=== PATIENT | male | born 2000 | race Caucasian/White ===

== ENCOUNTER 2025-01-20 16:04 | Emergency (ER) | payer BC, SELFPAY ==
--- NOTE | ~2025-01-20 | XR_ITS ---
CLINICAL HISTORY: chest pain 1 view chest x-ray. Comparison: None Findings: The lungs are adequately expanded. No focal consolidation. No effusion or pneumothorax. Cardiac and mediastinal contours are within normal limits. No acute osseous abnormality Impression: No focal consolidation This document has been electronically signed by: Rios Gordon MD on 01/20/2025 17:28:28
[2025-01-20 16:11] VITALS: BP 150/89; PULSE 117; RESP 18; TEMP 36.4; O2SAT 99; BMI 24.2
--- NOTE | 2025-01-20 16:22 | ED_ITS ---
HPI - General Adult General Chief complaint: General Medical Stated complaint: SOB; clammy, extremities numb Time Seen by Provider: 01/20/25 18:19 Source: patient Limitations: no limitations History of Present Illness ED Provider: Amy Floyd PA-C HPI narrative: 24-year-old otherwise healthy male with the anxiety, presents with chest pain x4 days. Patient states he has had generalized chest tightness, that became worse today while exercising. Associated shortness of breath, dizziness, diaphoresis when patient had this episode. Patient denies new psychosocial stressors. Denies recent cough or cold symptoms. Denies unilateral calf pain or swelling. The patient's symptoms have since resolved. Related Data Allergies Allergy/AdvReac Type Severity Reaction Status Date / Time No Known Allergies Allergy Verified 01/20/25 16:13 Review of Systems 2 Review of Systems: Yes all other systems are reviewed and are negative Constitutional: Constitutional: Denies fatigue, Denies fever(s) and Denies headache(s) ENT: Reports dizziness and Denies headache(s) Cardiovascular: Cardiovascular: Reports chest pain and Reports dyspnea Respiratory: Respiratory: Denies cough and Reports dyspnea Gastrointestinal: Gastrointestinal: Denies abdominal pain, Denies nausea and Denies vomiting Musculoskeletal: Musculoskeletal: Denies back pain, Denies arthralgias and Denies joint swelling Neurologic: Reports dizziness and Denies headache(s) Endocrine: Endocrine: Denies fatigue PMFSH Past Medical History Attestation statement: The following information was validated with the patient. Social History Social History Smoked in Last 30 Days: No Use of substances other than those prescribed or required for medical reasons: Yes Substance Use Type: Marijuana Substance Use Frequency: Weekly Advance Directives: No Advance Directives Information Provided: Yes Do you have a plan to hurt others: No Plan Physical Exam ED Vital Signs: Vital Signs - 24 hr 01/20/25 16:11 01/20/25 18:00 01/20/25 19:33 Temperature 97.5 F 98.1 F 98.1 F Pulse Rate 117 H 86 86 Respiratory Rate 18 18 18 Blood Pressure 150/89 H 120/62 120/62 Pulse Oximetry 99 98 98 Oxygen Delivery Method Room Air Room Air Room Air BMI result Body Mass Index 24.2 Const Other: Alert Orientation/consciousness: patient oriented x3 Resp Effort & Inspection: normal respiratory effort Cardio Other: Normal peripheral perfusion Skin Other: Warm dry no rash Neuro General: patient oriented x3, gait normal, no focal motor deficits and CN's II- XI intact bilaterally Extrem Other: No unilateral calf pain or swelling Psych Other: Cooperative, appears anxious Course Course Course Narrative: RME: 24-year-old male presents to ED 3-4 days of chest pain dizziness feeling clammy. Patient states not eaten much today and having only coughing while working out and nearly syncopized but did not pass out. EKG labs ordered. Medical Decision Making Medical Decision Making MDM Narrative: 24-year-old otherwise healthy male with the anxiety, presents with chest pain x4 days. Patient states he has had generalized chest tightness, that became worse today while exercising. Associated shortness of breath, dizziness, diaphoresis when patient had this episode. Patient denies new psychosocial stressors. Denies recent cough or cold symptoms. Denies unilateral calf pain or swelling. The patient's symptoms have since resolved. Problem: Anxiety History: Per patient I have considered the following differential diagnoses: Panic attack, viral syndrome, pneumonia, musculoskeletal strain, costochondritis, ACS, PE Plan: Screening labs including EKG chest x-ray and cardiac enzymes were obtained from triage. The patient was objectively tachycardic, we will add on a dimer. To note he has no objective signs symptoms for DVT on exam. The patient has no risk factors for coronary artery disease, his heart score is 0. I do believe he was having a panic attack, he also explained that he had bilateral paresthesias of his hands at the time of his chest pain and shortness of breath while exercising. I have independently reviewed the following tests: Labs: No leukocytosis, not anemic, no electrolyte abnormality, trop negative, dimer negative, viral panel neg EKG: Sinus tachycardia, rate of 105, T-wave abnormality noted inferior lead, no prior to compare to, QTC 430 Chest x-ray:Impression: No focal consolidation This document has been electronically signed by: Rios Gordon MD on 01/20/2025 17:28:28 Lab Data 01/20/25 16:59 01/20/25 16:59 Labs: Lab Results 01/20/25 Range/Units 16:59 WBC 8.0 (4.8-10.8) X10*3/uL RBC 4.93 (4.60-5.80) X10*6/uL Hgb 15.1 (14.0-18.0) g/dl Hct 42.5 (42.0-52.0) % MCV 86.2 (80.0-98.0) fL MCH 30.6 (27.0-33.0) pg MCHC 35.5 (31.0-36.0) g/dl RDW 12.6 (11.0-16.0) % Plt Count 272 (160-400) X10*3/uL MPV 9.8 (9.4-12.4) fL Immature Gran % (Auto) 0.3 (0.0-0.4) % Neut % (Auto) 55.4 (45-73) % Lymph % (Auto) 32.0 (20-40) % [place] % (Auto) 10.5 (2-11) % Eos % (Auto) 1.3 (0-4) % Baso % (Auto) 0.5 (0-2) % Lymph # (Auto) 2.6 (1.2-4.9) X10*3/uL [place] # (Auto) 0.8 (0.1-1.2) X10*3/uL Eos # (Auto) 0.1 (0.0-0.4) X10*3/uL Baso # (Auto) 0.0 (0.0-0.2) X10*3/uL Abs Immat Gran (auto) 0.02 (0.00-0.03) X10*3/uL Absolute Neuts (auto) 4.4 (2.0-8.3) x10*3/uL Absolute Nucleated RBC 0.000 (0.0-0.012) X10*3/uL Nucleated RBC % (auto) 0.0 (0.0-0.2) /100WBC PT 12.1 (10.9-12.4) SEC INR 1.0 (0.9-1.1) APTT 29.3 (26.0-36.8) SEC D-Dimer High Sensitivty < 150 NG/ML Sodium 138 (135-145) mmol/L Potassium 3.4 (3.3-5.1) mmol/L Chloride 101 (96-108) mmol/L Carbon Dioxide 25 (22-29) mmol/L Anion Gap 15 (12-20) BUN 17 H (9-16) mg/dL Creatinine 1.00 (0.5-1.4) mg/dL Estim Creat Clear Calc 126.5 Estimated GFR > 60 Random Glucose 128 H (60-115) mg/dL Calcium 9.8 (8.4-10.2) mg/dL Total Bilirubin 0.5 (0.0-1.0) mg/dL AST 42 H (5-37) U/L ALT 37 (0-40) U/L Alkaline Phosphatase 75 (39-117) U/L Troponin I High Sens < 2.7 (<3.5-35.0) ng/L B-Natriuretic Peptide < 10 (<100) pg/mL Total Protein 7.6 (6.5-8.0) g/dL Albumin 4.5 (3.5-5.0) g/dL Influenza Type A (PCR) NEGATIVE (Negative) Influenza Type B (PCR) NEGATIVE (Negative) RSV RNA Qual (PCR) NEGATIVE (Negative) SARS-CoV-2 RNA (RT-PCR) NEGATIVE (Negative) Discharge Plan Discharge Clinical Impression: Chest pain, Breath shortness, Anxiety Patient Disposition: Home, Self-Care Additional Instructions: All of your screening labs including a cardiac enzymes and a lab value to rule out a clot in your lung were negative. There were no concerning changes on her EKG in the chest x-ray is clear. I do believe your symptoms were secondary to having a panic attack. Continue to follow up with your primary care provider as needed. Interventions: ED Discharge Assessment Last Done: 01/20/25 19:33 Discharge Date/Time: 01/20/25 19:33 Print Language: Slovak
--- NOTE | 2025-01-20 16:22 | ECG_ITS ---
Test Reason : CHEST PAIN Blood Pressure : */* mmHG Vent. Rate : 105 BPM Atrial Rate : 105 BPM P-R Int : 152 ms QRS Dur : 100 ms QT Int : 326 ms P-R-T Axes : 75 69 -5 degrees QTcB Int : 430 ms Sinus tachycardia Right atrial enlargement T wave abnormality, consider inferior ischemia Abnormal ECG No previous ECGs available Referred By: Eddie Crowe Electronically Signed By: Moose Ziegler
[2025-01-20 17:05] LABS: MANUAL DIFF FLAG NO
[2025-01-20 17:08] LABS: Basophils Percent Auto 0.5 % (0-2); Eosinophils Absolute Auto 0.1 X10*3/uL (0.0-0.4); Eosinophils Percent Auto 1.3 % (0-4); Hematocrit 42.5 % (42.0-52.0); Hemoglobin 15.1 g/dl (14.0-18.0); Imm Gran Abs Auto 0.02 X10*3/uL (0.00-0.03); Imm Gran Pct Auto 0.3 % (0.0-0.4); Lymphocytes Absolute Auto 2.6 X10*3/uL (1.2-4.9); Mean Corpuscular HGB Conc 35.5 g/dl (31.0-36.0); Mean Corpuscular Hemoglobin 30.6 pg (27.0-33.0); Mean Corpuscular Volume 86.2 fL (80.0-98.0); Mean Platelet Volume 9.8 fL (9.4-12.4); Monocytes Absolute Auto 0.8 X10*3/uL (0.1-1.2); Monocytes Percent Auto 10.5 % (2-11); Neutrophils Absolute Auto 4.4 x10*3/uL (2.0-8.3); Neutrophils Percent Auto 55.4 % (45-73); Platelet Count 272 X10*3/uL (160-400); Red Blood Count 4.93 X10*6/uL (4.60-5.80); Red Cell Distribution Width 12.6 % (11.0-16.0)
[2025-01-20 17:14] LABS: Prothrombin Time 12.1 SEC (10.9-12.4)
[2025-01-20 17:16] LABS: Partial Thromboplastin Time 29.3 SEC (26.0-36.8)
[2025-01-20 17:23] LABS: Alanine Aminotransferase 37 U/L (0-40); Albumin Level 4.5 g/dL (3.5-5.0); Alkaline Phosphatase 75 U/L (39-117); Anion Gap 15 (12-20); Aspartate Amino Transferase 42 U/L (5-37); Bilirubin Total 0.5 mg/dL (0.0-1.0); Blood Urea Nitrogen 17 mg/dL (9-16); Calcium 9.8 mg/dL (8.4-10.2); Carbon Dioxide 25 mmol/L (22-29); Chloride 101 mmol/L (96-108); Creatinine Clr Calc Pharmacy 126.5; Estimated Glomerular Filt Rate > 60; Glucose Random 128 mg/dL (60-115); Potassium 3.4 mmol/L (3.3-5.1); Sodium 138 mmol/L (135-145); Total Protein 7.6 g/dL (6.5-8.0)
[2025-01-20 17:29] LABS: B Type Natriuretic Peptide < 10 pg/mL (<100)
[2025-01-20 17:32] LABS: Troponin-I High Sensitivity < 2.7 ng/L (<3.5-35.0)
[2025-01-20 18:00] VITALS: BP 120/62; PULSE 86; RESP 18; TEMP 36.7; O2SAT 98
[2025-01-20 18:04] LABS: Influenza A PCR NEGATIVE (Negative); Influenza B PCR NEGATIVE (Negative); Resp Syncy Virus RNA Qual PCR NEGATIVE (Negative); SARS COV2 PCR INHOUSE NEGATIVE (Negative)
[2025-01-20 18:42] LABS: D Dimer High Sensitivity < 150 NG/ML
[2025-01-20 19:33] VITALS: BP 120/62; PULSE 86; RESP 18; TEMP 36.7; O2SAT 98
--- OUTSIDE RECORDS SUMMARY | 2025-01-20 19:47 | XMS_ITS | Encounter Summary ---
Author Organization [facility] Address [address] [place] [id number] Phone Care Team Providers Care Assistant Mechanic Name Role Phone Gilberto Marcial MD Primary Care Provider [phone] Encounter Details Date Type Department Care Team (Late st Contact Info) Description 07/02/2017 Conversion Encounter [facility] - [address], [address] [place] [address] Gilberto Marcial MD [address] [place] [address] Social History Tobacco Use Types Packs/Day Years Used Date Smoking Tobacco: Never Assessed Sex and Gender Information Value Date Recorded Sex Assigned at Not on file Legal Sex Male 10:37 PM EST Gender Identity Not on file Sexual Orientation Not on file documented as of this encounter Plan of Treatment Not on file documented as of this encounter Visit Diagnoses Not on filedocumented in this encounter Care Teams Assistant Mechanic Relationship Specialty Start Date End Date Gilberto Marcial MD [address] [place] [address] PCP - General 01/14/17 09/04/22 documented as of this encounter
--- OUTSIDE RECORDS SUMMARY | 2025-01-20 19:47 | XMS_ITS | Clinical Summary ---
Author Organization [facility] Address [address] [place] [phone] Phone Care Team Providers Care Cad Specialist Name Role Phone Unavailable Primary Care Provider Unavailabl e Allergies No known active allergies Medications docusate sodium 100 MG capsule Take 100 mg by mouth 2 times daily as needed. 04/06/2020 Active Magnesium Citrate 1.745 GM/30ML solution TAKE 1 FULL BOTTLE FOR 1 DOSE 0 04/07/2020 Active Polyethylene Glycol 3350 (PEG 3350) powder Take 17 g by mouth daily. 04/06/2020 Active Active Problems Problem Noted Date Diagnosed Date Acute suppurative otitis med ia of both ears without spontaneous rupture of tympanic membranes 10/17/2018 Assessment & Plan (10/26/2018 9:26 AM EST): Now BSOM 1+ AU. Will make well visit appt and f/u then. Assessment & Plan (10/17/2018 11:26 AM EST): Will treat epididymitis with 1 dose rocephin + 10 d of doxy which will not cover the AOM. Will recheck pt in 2-3d. Epididymitis, right 10/17/2018 Overview (10/21/2018): 10/21/2018 - UC from visit is growing > 100,000 colonies H flu. On doxycycline which is not preferred coverage for H flu. Pt to be called for an update and f/u appt. Assessment & Plan (10/26/2018 9:23 AM EST): Resolved Scrotal mass 03/17/2018 Overview (03/17/2018): Seen 12/2017 for right scrotal mass. US 02/2018: Reviewed US report w/JS> 4 mm calcification right posterior scrotal wall. Likely result of past trauma but per JS should be followed. Last PE was 2014. Called mom and discussed results. She will talk w/Felipe about scheduling a PE with JS in the next few months and he will recheck the mass at that time. Weight loss 02/02/2016 Assessment & Plan (10/26/2018 9:23 AM EST): No cause evident. Eating healthier diet. Will come in for PE Syncope 11/19/2015 Immunizations Immunization Administration Dates Next Due DTaP 02/22/2003, 0,03/27/1999, 999,1998 HPV, Quadrivalent 04/26/2014,12/24/2013,10/20/20 13 Hep B, ped/adol 07/03/1999,1998,1998 Hib (PRP-T) 12/04/1999, 9,01/16/1999, 998 IPV 02/22/2003, 9,01/16/1999, 998 MMR 04/16/2004,12/04/1999 Meningococcal Conj (Menactra) MCV4P 10/24/2015,0 04/09/2011 Tdap 04/09/2011 Varicella 08/16/2008,09/27/1999 Family History Relation Name Status Comments Cousin 1 Alive Cousin 2 Alive Father Alive Father: Enlarge d heart Father's Sister Alive Maternal Grandfather Alive Maternal Grandmother Alive Materna l Aunt: Hole in the heart Mother Alive Other 1 Alive Other 2 Alive Other 3 Alive Other 4 Alive Other 5 Alive Other 6 Alive Other 7 Alive Other 8 Alive Other 9 Alive Other 10 Alive Enlarged heart Other 11 Alive Hole in the hea rt Other 12 passed at the a ge of 40 from a heart attack Paternal Grandfather Pat Gr- GFather: passed at the age of 40 from a heart attack Paternal Grandmother Alive Social History Tobacco Use Types Packs/Day Years Used Date Smoking Tobacco: Never Assessed Sex and Gender Information Value Date Recorded Sex Assigned at Not on file Legal Sex Male 10:37 PM EST Gender Identity Not on file Sexual Orientation Not on file Last Filed Vital Signs Vital Sign Reading Time Taken Comments Blood Pressure 112/58 11/22/2015 12:00 AM EST Pulse 94 02/02/2016 12:00 AM EST Temperature 36.8 ??C (98.2 ??F) 04/18/2020 5:12 PM ED T Respiratory Rate - - Oxygen Saturation 99% 02/02/2016 12:00 AM EST Inhaled Oxygen Concentration - - Weight 82.2 kg (181 lb 3.2 oz) 04/18/2020 5:12 P M EDT Height 186.1 cm (6' 1.25 ) 11/22/2015 12:[address] Body Mass Index - - Plan of Treatment Health Maintenance Due Date Last Done Comments Consider Men B Vaccine (1 of 2 - Bexsero 2-dose series) 2014 DTaP,Tdap,and Td Vaccines (7 - Td or Tdap) 04/09/2021 04/09/2011, 02/22/2003, 03/11/2000, Additional history exists Influenza Vaccines (#1) 2024 09/12/2020 COVID-19 Vaccine ( season) 2024 Hepatitis B Vaccines Completed 07/03/1999, 1998, 1998 HIB Vaccines Completed 12/04/1999, 02/1999, 01/16/1999, Additional history exists IPV Vaccines Completed 02/22/2003, 02/1999, 01/16/1999, Additional history exists MMR Vaccines Completed 04/16/2004, 12/04/1999 Varicella Vaccines Completed 08/16/2008, 09/27/1999 HPV Vaccines Completed 04/26/2014, 11/26, 10/20/2013 Meningococcal Vaccine Completed 10/24/2015, 011 Hepatitis A Vaccines Aged Out No long er eligible based on patient's age to complete this topic Men B Vaccine Aged Out No longer elig ible based on patient's age to complete this topic Pneumococcal Vaccine Aged Out No long er eligible based on patient's age to complete this topic
== END 2025-01-20 19:33 | disposition home or self-care (01) ==
PROVIDERS: Physician Assistant; Physician Assistant Medical; Emergency Provider Emergency Medicine
DX: R07.9 Chest pain, unspecified (principal); R06.02 Shortness of breath; F41.9 Anxiety disorder, unspecified; Z03.818 Encounter for observation for suspected exposure to other biological agents ruled out
CPT/HCPCS: 0241U; 36415; 71045; 80053; 83880; 84484; 85025; 85379; 85610; 85730; 93005; 99283; 99284

== ENCOUNTER → 2025-01-20 16:22 | Outpatient (BNV) | payer BC, SELFPAY | PROVIDERS: Visit Provider Radiology Vascular & Interventional Radiology | DX: R07.9 Chest pain, unspecified (principal) | CPT/HCPCS: 71045 ==

== ENCOUNTER → 2025-01-20 16:22 | Outpatient (BNV) | payer BC, SELFPAY | PROVIDERS: Emergency Provider Emergency Medicine; Visit Provider Internal Medicine Cardiovascular Disease | DX: R07.9 Chest pain, unspecified (principal); R00.0 Tachycardia, unspecified; R94.31 Abnormal electrocardiogram [ECG] [EKG] | CPT/HCPCS: 93010 ==